=== PATIENT | male | born 2000 | race Caucasian/White ===

== ENCOUNTER 2024-01-14 07:35 | Emergency (ER) | payer SELFPAY ==
[~2024-01-14] VITALS: Ht 170.2 cm; Wt 56.7 kg
[2024-01-14] MEDS ORDERED: LORAZEPAM 1 MG TABLET ONE (07:58)
[2024-01-14] MEDS: LORAZEPAM 0.5 MG TABLET PO ONE (08:13)
[2024-01-14 08:14] LABS: BASOPHILS % (AUTO) 0.2 % (0.0-2.0); EOSINOPHILS # (AUTO) 0.1 K/uL (0.0-0.7); EOSINOPHILS % (AUTO) 0.4 % (0.0-7.0); HEMATOCRIT 43.6 % (36.7-47.1); HEMOGLOBIN 15.6 g/dL (12.5-16.3); LYMPHOCYTES # (AUTO) 1.2 K/uL (0.8-4.8); LYMPHOCYTES % (AUTO) 7.2 % (20.5-51.5); MEAN CORPUSCULAR HEMOGLOBIN 31.1 uug (23.8-33.4); MEAN CORPUSCULAR HGB CONC 36 g/dL (32.5-36.3); MEAN CORPUSCULAR VOLUME 86.7 fL (73.0-96.2); MONOCYTES # (AUTO) 0.8 K/uL (0.1-1.30); NEUTROPHILS # (AUTO) 14.7 K/uL (1.8-8.9); NEUTROPHILS % (AUTO) 87.2 % (38.5-71.5); PLATELET COUNT (AUTO) 282 K/uL (152-348); RED BLOOD CELL COUNT(AUTO) 5.02 MIL/uL (4.06-5.63); RED CELL DISTRIBUTION WIDTH 13.3 % (12.1-16.2); WHITE BLOOD COUNT (AUTO) 16.9 K/uL (3.6-10.2)
[2024-01-14 08:17] LABS: DIFFERENTIAL COMMENT 1
[2024-01-14 08:31] LABS: ALBUMIN 5.1 g/dL (3.4-5.0); BILIRUBIN,DIRECT 0.3 mg/dL (0.0-0.2); BILIRUBIN,TOTAL 2.1 mg/dL (0.2-1.0); CALCIUM 10.4 mg/dL (8.5-10.1); CREATININE 1.1 mg/dL (0.6-1.3); POTASSIUM 3.5 mmol/L (3.5-5.1); TOTAL PROTEIN, SERUM 9.1 g/dL (6.4-8.2)
[2024-01-14] MEDS ORDERED: SWABABLE VALVE TRANSFER SET EA MC ONE (08:58)
[2024-01-14] MEDS ORDERED: IV NORMAL SALINE 250 ML IV ONE (08:58)
[2024-01-14] MEDS ORDERED: IOHEXOL 300MG/ML 100 ML INFUS..BTL ONE (08:58)
[2024-01-14] MEDS: IV NS 1000 ML 1,000 ML IV ONE (09:56)
[2024-01-14] MEDS ORDERED: CYANOCOBALAMIN 1000 MCG/ML VIAL ONE (09:57)
[2024-01-14] MEDS: CYANOCOBALAMIN 1000 MCG/ML VIAL IM ONE (09:57)
[2024-01-14] MEDS ORDERED: BISM-146 PO (10:57)
[2024-01-14] MEDS ORDERED: METR500T PO (10:57)
[2024-01-14] MEDS ORDERED: OMEP20TA20 PO (10:57)
[2024-01-14] MEDS ORDERED: ACET1TAB23 PO (10:57)
[2024-01-14] MEDS ORDERED: LORA0.5T48 PO (10:57)
[2024-01-14] MEDS ORDERED: TETR-57 PO (10:57)
[2024-01-14 11:16] VITALS: BP 123/87; O2SAT 98
== END 2024-01-14 11:17 | disposition home or self-care (01) ==
LOC: ER 07:35
DX: K29.70 Gastritis, unspecified, without bleeding (principal); E53.8 Deficiency of other specified B group vitamins; F41.9 Anxiety disorder, unspecified; Z79.899 Other long term (current) drug therapy
CPT/HCPCS: 99285; 74177; 80076; 80048; 82607; 83690; 85025; 74018; 96372; 83970; J3420; Q9967; J7040; 36415; A4606; A4663

== ENCOUNTER 2024-01-15 00:40 | Emergency (ER) | payer SELFPAY ==
[~2024-01-15] VITALS: Ht 170.2 cm; Wt 55.8 kg
[~2024-01-15 00:40] MED LIST: ACET1TAB23 PO; BISM-146 PO; LORA0.5T48 PO; METR500T PO; OMEP20TA20 PO; TETR-57 PO
[2024-01-15 00:54] VITALS: O2SAT 100
== END 2024-01-15 01:45 | disposition home or self-care (01) ==
LOC: ER 00:58
DX: K29.70 Gastritis, unspecified, without bleeding (principal); F41.9 Anxiety disorder, unspecified; Z79.899 Other long term (current) drug therapy
CPT/HCPCS: A4606; A4663